=== PATIENT | male | born 1985 | race African-American/Black ===

== ENCOUNTER 2022-09-10 13:55 | Outpatient (CLI) | payer OTHER ==
[2022-09-10 14:44] LABS: PLATELET COUNT 190 K/uL (142-355)
[2022-09-10 15:14] LABS: POTASSIUM 4.6 mmol/L (3.6-5.2)
== END 2022-09-10 19:17 | disposition home or self-care (01) ==
LOC: LABW 13:55
PROVIDERS: ATTEND Nurse Practitioner Family
DX: Z00.00 Encounter for general adult medical examination without abnormal findings (principal); Z83.3 Family history of diabetes mellitus; M25.50 Pain in unspecified joint
CPT/HCPCS: 36415; 80053; 80061; 83036; 84443; 84550; 85027